=== PATIENT | female | born 1970 | race African-American/Black ===

== ENCOUNTER → 2018-08-18 | Outpatient (CLI) | payer MEDICARE, MEDICAID ==
[2016-03-09 23:20] VITALS: BP 117/70
[~2018-08-18] MED LIST: ACET650S PO; ASPI-630 PO; ATOR40TA PO; CARB200T PO; DOCU-109 PO; HYDR-3164 PO; LORA10CA PO; PHEN100C PO; RANI150T21 PO; SULF1TAB24 PO
--- NOTE | 2018-08-18 16:18 | RAD ---
Lumbar spine, 3 views, 08/18/2018: HISTORY: Low back pain The lumbar vertebral heights are well-maintained. No fracture or subluxation is evident. There are mild sclerotic changes involving the facet joints in the lower lumbar spine. The paraspinous soft tissues are unremarkable. IMPRESSION: No acute lumbar spine abnormality is detected. Electronically signed by: Jorden Eastman MD (08/18/2018 4:08 PM) [facility]
== END | disposition home or self-care (01) ==
LOC: RAD 10:18
PROVIDERS: ATTEND Pediatrics
DX: M54.5 Low back pain (principal)
CPT/HCPCS: 72100